=== PATIENT | female | born 1980 | race Caucasian/White ===

== ENCOUNTER 2017-05-06 21:20 | Emergency (ER) | payer BC ==
[2017-05-06 21:43] VITALS: BP 130/87
[2017-05-06] MEDS ORDERED: EPINEPHRINE INJ/PF 1 MG/1 ML AMPULE SUBCUT PRN (22:49)
[2017-05-06] MEDS ORDERED: LIDOCAINE 2% VISCOUS SOLN 20 ML UDCUP PO ONE (22:50)
[2017-05-06] MEDS ORDERED: MAG HYDROX/AL HYDROX/SIMETH SUSP 30 ML UDCUP PO ONE (22:50)
--- NOTE | 2017-05-06 22:55 | ER Document Report ---
ED General - General Chief Complaint: Allergic Reaction Stated Complaint: POSSIBLE ALLERGIC REACTION Time Seen by Provider: 05/06/17 22:35 Mode of Arrival: Ambulatory Information source: Patient Notes: This 37-year-old female patient comes emergency room complaining of acute allergic reaction which started this afternoon 2 hours after taking a dose of Zantac for heartburn about 1 PM. She has never taken Zantac before. 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 She took cell phone pictures of the urticarial rash showing on her arms abdomen. It was also on her buttock area by history. When she got off work and went home she took one Benadryl. At this time the urticaria has calmed down quite a lot but there still is itching on abdomen and buttocks region. There is no swelling in the mouth and throat tongue and there is no difficulty swallowing. She reports she still has the heartburn discomfort. She has never had anything like this before, she does have a sibling who suffers from angioedema. TRAVEL OUTSIDE OF THE [place] IN LAST 30 DAYS: No - Related Data Allergies/Adverse Reactions: ranitidine [From Zantac] Allergy (Verified 05/06/17 21:41) Past Medical History - General Information source: Patient - Social History Smoking Status: Unknown if Ever Smoked Cigarette use (# per day): No Chew tobacco use (# tins/day): No Smoking Education Provided: No Frequency of alcohol use: None Drug Abuse: None Occupation: Works at [employer] Lives with: Family Family History: Other - Angioedema - Medical History Medical History: Negative Psychiatric Medical History: Reports: Hx Depression - Takes Celexa Traumatic Medical History: Reports: Hx Fractures - Right forearm Past Surgical History: Reports: Hx Orthopedic Surgery - ORIF right forearm Review of Systems - Review of Systems Constitutional: No symptoms reported EENT: No symptoms reported Cardiovascular: No symptoms reported Respiratory: No symptoms reported Gastrointestinal: See HPI Genitourinary: No symptoms reported Female Genitourinary: No symptoms reported, Last menstrual period - Patient takes control pills Musculoskeletal: No symptoms reported Skin: See HPI Hematologic/Lymphatic: No symptoms reported Neurological/Psychological: No symptoms reported Physical Exam - Vital signs Vitals: Temp Pulse Resp BP Pulse Ox 98.4 F 88 18 130/87 H 96 05/06/17 21:41 05/06/17 21:41 05/06/17 21:41 05/06/17 21:41 05/06/17 21:41 Interpretation: Normal - General General appearance: Appears well, Alert In distress: None - HEENT Head: Normocephalic, Atraumatic Eyes: Normal Pupils: PERRL Mouth/Lips: Normal. No: Angioedema Mucous membranes: Normal Pharynx: Normal. No: Uvular edema Neck: Normal - Respiratory Respiratory status: No respiratory distress Breath sounds: Normal - Cardiovascular Rhythm: Regular - Abdominal Inspection: Other - There is some urticaria remaining in the lower abdomen around the waistline Tenderness: Tender - Some mild epigastric tenderness - Back Back: Other - There is some urticaria remaining in the lower back and upper buttock around the waistline - Extremities General upper extremity: Normal inspection General lower extremity: Normal inspection - Neurological Neuro grossly intact: Yes - Psychological Associated symptoms: Normal affect, Normal mood - Skin Skin Temperature: Warm Skin Moisture: Dry Skin Color: Normal Course - Re-evaluation Re-evalutation: 05/06/17 23:37 Patient reports hives have cleared and the itching is gone. The heartburn is better but not completely gone. - Vital Signs Vital signs: Temp Pulse Resp BP Pulse Ox 98.4 F 88 18 130/87 H 96 05/06/17 21:41 05/06/17 21:41 05/06/17 21:41 05/06/17 21:41 05/06/17 21:41 Discharge - Discharge Clinical Impression: Acute allergic reaction Qualifiers: Encounter type: initial encounter Qualified Code(s): T78.40XA - Allergy, unspecified, initial encounter Condition: Stable Disposition: HOME, SELF-CARE Additional Instructions: Acute Allergic Reaction to Drugs Your symptoms are due to an allergic reaction. The physician feels that a medication you've taken may be responsible. Medication allergy can cause hives , swelling of the hands, feet and face, hoarseness, and difficulty swallowing or breathing. This type of allergy can also be caused by animal dander, foods, infection, or insect bites. Medication can cause allergy even when prior use of this same medication caused no problems. Emergency treatment may include adrenalin and antihistamines. Home treatment includes the following: (1) Stop the suspected medication. (2) Oral antihistamines for the next four to five days (Benadryl, Atarax). (3) Avoid aspirin until the hives completely disappear. (4) Avoid hot baths or showers until the hives are completely gone. Call the doctor if faintness, difficulty swallowing, tightness in the chest or wheezing occurs. RETURN TO THE EMERGENCY ROOM IF ANY NEW OR WORSENING SYMPTOMS.
== END 2017-05-06 23:50 | disposition home or self-care (01) ==
LOC: ER 21:20
DX: T78.40XA Allergy, unspecified, initial encounter (principal); Z79.899 Other long term (current) drug therapy; X58.XXXA Exposure to other specified factors, initial encounter
CPT/HCPCS: 99283; 96372; J0171; J3490